=== PATIENT | male | born 1990 | race Two or more races ===

== ENCOUNTER 2019-04-16 12:52 | Emergency (ER) | payer OTHER | END 2019-04-16 18:03 | disposition home or self-care (01) | LOC: FTE 12:52 | DX: S01.81XA Laceration without foreign body of other part of head, initial encounter (principal); S01.01XA Laceration without foreign body of scalp, initial encounter; F17.210 Nicotine dependence, cigarettes, uncomplicated; Y09 Assault by unspecified means | CPT/HCPCS: 12001; 70480; 70486; 99284-25 ==